=== PATIENT | male | born 1975 | race Caucasian/White ===

== ENCOUNTER 2021-02-18 18:36 | Emergency (ER) | payer OTHER, SELFPAY ==
[2021-02-18 18:42] VITALS: BP 161/85; PULSE 58; RESP 18; TEMP 36.9; O2SAT 100
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
[2021-02-18] MEDS: LIDOCAINE 1% W/EPI 1 ML SUBCUT (20:29)
[2021-02-18] MEDS: cephALEXin 250 MG PREPACK 1 BOTTLE MISC (20:30)
[2021-02-18 20:58] VITALS: BP 155/82; PULSE 48; RESP 18; O2SAT 99
[2021-02-18] MEDS: BACITRACIN OINT 0.9 GM PCKT 1 APPLIC TOP (21:04)
== END 2021-02-18 21:15 | disposition home or self-care (01) ==
PROVIDERS: Emergency Provider Emergency Medicine
DX: S81.811A Laceration without foreign body, right lower leg, initial encounter (principal); W19.XXXA Unspecified fall, initial encounter
CPT/HCPCS: 12004; 99283

== ENCOUNTER → 2023-07-21 08:17 | Outpatient (CLI) | payer OTHER, SELFPAY ==
--- NOTE | 2023-07-21 | DI.MRI.S_ITS ---
PROCEDURE: MR SHOULDER RT WO CON INDICATIONS: Pain in right shoulder TECHNIQUE: Noncontrast oblique coronal T2 fast spin echo with fat saturation, oblique sagittal T1 spin echo and T2 fast spin echo with fat saturation, axial T1 spin echo and T2 fast spin echo with fat saturation through the shoulder. COMPARISON: None. FINDINGS: Image quality: Excellent. Rotator cuff: Low-grade articular and bursal surface partial thickness tear involving distal supraspinatus at its insertion on the humeral head is seen extending to musculotendinous junction. Distal infraspinatus tendinosis is noted. Distal subscapularis tendon is intact. No full-thickness rotator cuff tendon rupture. Sagittal images demonstrate no significant rotator cuff muscle atrophy. Bones and bursae: No bone marrow contusions or fractures. Moderate acromioclavicular joint osteoarthritic changes are seen with joint space narrowing and downward osteophyte formation depressing on musculotendinous junction of supraspinatus. Small amount of subacromial subdeltoid bursal fluid is seen. No gross loose bodies. Capsule and soft tissues: Signal abnormality and fraying of superior anterior labrum at 12 to 2 o'clock position is seen suggestive of superior anterior labral tear. The long head of the biceps tendon demonstrates normal location and morphology. The rotator interval appears normal, without fibrosis. The coracohumeral ligament is normal in thickness. IMPRESSION: 1. Low-grade articular and bursal surface partial thickness tear involving distal supraspinatus extending to musculotendinous junction. Distal infraspinatus tendinosis. No full-thickness rotator cuff tendon rupture. 2. Moderate acromioclavicular joint osteoarthritis. No fracture or dislocation. Small amount of subacromial subdeltoid bursal fluid. No gross loose bodies. 3. Suggestion of superior anterior labral tear at 12 to 2 o'clock position. Dictated by: Malcolm Hou M.D. on 07/21/2023 at 9:37 Approved by: Malcolm Hou M.D. on 07/21/2023 at 9:38
== END ==
PROVIDERS: Referring Provider Internal Medicine; Visit Provider Internal Medicine
DX: M75.111 Incomplete rotator cuff tear or rupture of right shoulder, not specified as traumatic (principal); M19.011 Primary osteoarthritis, right shoulder; M25.511 Pain in right shoulder
CPT/HCPCS: 73221

== ENCOUNTER → 2023-09-29 08:51 | Outpatient (CLI) | payer OTHER, SELFPAY ==
--- NOTE | 2023-09-29 | DI.ECHO.S_ITS ---
[facility]---------+ [facility] +---------+ : : [address] : : : : [id number] : : : : Phone: [phone]---------+ Echocardiogram Report + + :Name: NARINDER HONG Study Date: 09/29/2023 Height: 72 in : :[facility] ReadingLocation: Weight: 195 lb : : Gender: Male BSA: 2.1 m2 : :: 1975 Age: 48 yrs BP: 157/92 mmHg: :Reason For Study: ENCOUNTER FOR GERNAL ADULT MEDICAL : :EXAMINATION : :Ordering Physician: CANDIDA, : :DIALLO Performed By: Mago Persaud : :Referring: DIALLO TIRADO : + + Interpretation Summary The patient was in sinus bradycardia with heart rates between 39-48 bpm during the exam. BP: 157/92 mmHg The left ventricle is normal in size and wall thickness. The left ventricular ejection fraction is normal. The ejection fraction is estimated to be 55-60%. The right ventricle is normal in size and function. There is mild mitral regurgitation. There is mild tricuspid regurgitation. The right ventricular systolic pressure is estimated to be at least 29 mmHg based on an estimated right atrial pressure of 8 mm Hg. Procedure: A two-dimensional transthoracic echocardiogram with color flow and Doppler was performed. The study quality was technically adequate. There is no prior echocardiogram noted for this patient. The patient was in sinus bradycardia with heart rates between 39-48 bpm during the exam. Left Ventricle: The left ventricle is normal in size and wall thickness. There is no thrombus. The ejection fraction is estimated to be 55-60%. The left ventricular ejection fraction is normal. There are no focal wall motion abnormalities. MV E/A: 1.7 Med Peak E' Zana: 7.7 cm/sec E/E' med: 10.4. Right Ventricle: The right ventricle is normal in size and function. Atria: The left atrium is moderately dilated. Right atrial size is normal. A prominent eustachian valve is noted. There is no Doppler evidence for an interatrial shunt. Mitral Valve: The mitral valve leaflets appear borderline thickened, but open well. There is mild mitral regurgitation. Aortic Valve: The aortic valve is trileaflet. The aortic valve opens well. There is no aortic valve stenosis. No aortic regurgitation is present. Tricuspid Valve: The tricuspid valve is normal. There is mild tricuspid regurgitation. The right ventricular systolic pressure is estimated to be at least 29 mmHg based on an estimated right atrial pressure of 8 mm Hg. Pulmonic Valve: The pulmonic valve leaflets are thin and pliable; valve motion is normal. There is mild pulmonic regurgitation. Great Vessels: The aortic root is normal size. The dimensions of the ascending aorta are normal. The IVC is dilated (diameter is greater than 2.1 cm) yet it collapses greater than 50% with a sniff. This suggests a right atrial pressure of 8 mm Hg. Pericardium/ Pleura There is no pericardial effusion. There is no pleural effusion. MMode/2D Measurements & Calculations LVIDd: 5.7 cm LVOT diam: 2.2 cm LVIDs: 3.8 cm Ao root diam: 3.4 cm FS: 33.3 % asc Aorta Diam: 3.6 cm EPSS: 0.50 cm IVSd: 1.0 cm LVPWd: 0.98 cm LV alvarez. diameter/BSA (cm/m^2): 2.7 LV sys. diameter/BSA (cm/m^2): 1.8 LA A2 area: 23.5 cm2 RA long axis: 6.2 cm LA A4 area: 28.9 cm2 RA area: 22.6 cm2 LA length (vol): 6.5 cm RA vol: 69.4 ml LA vol: 88.9 ml RA : 32.9 ml/m2 LA vol index: 42.2 ml/m2 IVC diam: 2.6 cm RVD1 (basal): 3.8 cm RVD2 (mid): 3.9 cm TAPSE: 2.0 cm Doppler Measurements & Calculations Ao V2 max: 155.7 cm/sec LVOT Max Zana: 119.7 cm/sec Ao V2 mean: 110.0 cm/sec LV V1 max P.7 mmHg Ao max P.7 mmHg LV V1 VTI: 25.0 cm Ao mean P.3 mmHg KATHRYN(I,D): 2.4 cm2 Ao V2 VTI: 38.5 cm KATHRYN(V,D): 2.9 cm2 sev ratio: 0.65 KATHRYN indexed to BSA (cm^2/m^2): 1.1 MV E max zana: 80.1 cm/sec TR max zana: 229.9 cm/sec MV A max zana: 48.0 cm/sec TR max P.1 mmHg MV E/A: 1.7 PA V2 max: 111.2 cm/sec Med Peak E' Zana: 7.7 cm/sec PA V2 mean: 80.7 cm/sec E/E' med: 10.4 PA mean P.9 mmHg Lat Peak E' Zana: 13.7 cm/sec PA pr(Accel): 5.4 mmHg E/E' lat: 5.9 E/e' average: 8.1 MV dec time: 0.19 sec SV(LVOT): 92.8 ml Reading Physician:10:27 AM
== END ==
PROVIDERS: Referring Provider Nurse Practitioner Family; Visit Provider Nurse Practitioner Family
DX: Z00.00 Encounter for general adult medical examination without abnormal findings (principal); I08.1 Rheumatic disorders of both mitral and tricuspid valves
CPT/HCPCS: 93306